=== PATIENT | female | born 1980 ===

== ENCOUNTER 2018-05-01 09:11 | Emergency (ER) | payer MEDICAID ==
[2018-05-01 09:17] VITALS: BMI 38.0
[2018-05-01] MEDS ORDERED: Sodium Chloride 0.9% 1,000 ML IV STA (09:55)
--- NOTE | 2018-05-01 10:00 | ED PDOC ---
HPI: Female Pain Time Seen by Provider: 05/01/18 09:43 Chief Complaint (Nursing): Female Genitourinary Chief Complaint (Provider): Flank pain History Per: Patient, Family History/Exam Limitations: no limitations Additional Complaint(s): Pt reports R flank pain X 2 months, was given ? antibiotic which resolved sxs but have returned. Also c/o dysuria, hesitancy and lower abdominal pain. Denies fever, nausea, vomiting, diarrhea. Menses started yesterday. Past Medical History Reviewed: Nursing Documentation, Vital Signs Vital Signs: Last Vital Signs Temp 96.8 F L 05/01/18 09:16 Pulse 59 L 05/01/18 09:16 Resp BP 122/82 05/01/18 09:16 Pulse Ox 99 05/01/18 09:16 - Medical History PMH: No Chronic Diseases, HTN, Chronic Kidney Disease - Surgical History Other surgeries: Gastric bypass - Family History Family History: States: Unknown Family Hx - Living Arrangements Living Arrangements: With Family - Social History Current smoker - smoking cessation education provided: No Alcohol: None - Home Medications Home Medications: Ambulatory Orders Medication Instructions Recorded Nitrofurantoin Macrocrystals 100 mg PO BID #14 cap 05/01/18 [Macrobid] Phenazopyridine [Pyridium] 200 mg PO BID PRN #6 tab 05/01/18 - Allergies Allergies/Adverse Reactions: Allergies Allergy/AdvReac Type Severity Reaction Status Date / Time No Known Allergies Allergy Verified 05/01/18 09:40 Review of Systems Constitutional: Negative for: Fever, Chills Cardiovascular: Negative for: Chest Pain, Palpitations Respiratory: Negative for: Cough, Shortness of Breath Gastrointestinal: Positive for: Abdominal Pain. Negative for: Nausea, Vomiting , Diarrhea Genitourinary Female: Positive for: Dysuria, Frequency, Vaginal Bleeding (Menses ), Pelvic Pain. Negative for: Incontinence, Hematuria, Vaginal Discharge Skin: Negative for: Rash, Lesions Neurological: Negative for: Headache, Dizziness Physical Exam - Reviewed Nursing Documentation Reviewed: Yes Vital Signs Reviewed: Yes - Physical Exam Appears: Positive for: Well, No Acute Distress Head Exam: Positive for: ATRAUMATIC, NORMAL INSPECTION Skin: Positive for: Normal Color, Warm, Dry Eye Exam: Positive for: Normal appearance, EOMI, PERRL Cardiovascular/Chest: Positive for: Regular Rate, Rhythm Respiratory: Positive for: Normal Breath Sounds. Negative for: Rales, Rhonchi, Wheezing Gastrointestinal/Abdominal: Positive for: Bowel Sounds, Soft, Tenderness ( Generalized). Negative for: Distended, Guarding, Rebound Back: Positive for: Normal Inspection, R CVA Tenderness. Negative for: L CVA Tenderness Extremity: Positive for: Normal ROM Neurologic/Psych: Positive for: Alert, Oriented - Laboratory Results Result Diagrams: 05/01/18 10:30 05/01/18 10:30 - ECG O2 Sat by Pulse Oximetry: 99 Medical Decision Making Medical Decision Makin yo female with R flank pain, dysuria and hesitancy. - labs - CT abd/pelvis - IVF - Morphine Accession No. : [id number] Patient Name / ID : TRACIE MOBLEY / [id number] Exam Date : 05/01/2018 10:24:30 ( Approved ) Study Comment : Sex / Age : F / 38Y Creator : Ernesto Carreno MD Dictator : Gas Technician : Eap Counselor : Ernesto Carreno MD Approver2 : Report Date : 05/01/2018 11:33:43 My Comment : Date of service: 05/01/2018 PROCEDURE: CT Abdomen and Pelvis. HISTORY: R flank pain, dysuria COMPARISON: Comparison made with CT scan of the abdomen pelvis dated 03/27/2010 the in TECHNIQUE: Contiguous axial images of the abdomen and pelvis. Total exam DLP = 1012.45 mGy- cm. This CT exam was performed using one or more of the following dose reduction techniques: Automated exposure control, adjustment of the mA and/or kV according to patient size, and/or use of iterative reconstruction technique. This CT exam was performed using one or more of the following dose reduction techniques: Automated exposure control, adjustment of the mA and/or kV according to patient size, and/or use of iterative reconstruction technique. . FINDINGS: LOWER THORAX: Unremarkable. LIVER: Liver is mildly enlarged measuring over 18 cm in CC dimension. No obvious hepatic mass or collection. . GALLBLADDER AND BILE DUCTS: Cholecystectomy. PANCREAS: Unremarkable. No mass. No ductal dilatation. SPLEEN: Unremarkable. No splenomegaly. ADRENALS: Unremarkable. KIDNEYS AND URETERS: Kidneys are symmetric in size. No evidence of nephrolithiasis or hydronephrosis. No obvious renal masses or collections. BLADDER: Urinary bladder exhibits mild thick-walled appearance which could be in part due to underdistention however correlation with urinalysis recommended to exclude cystitis. . REPRODUCTIVE: Unremarkable. APPENDIX: Unremarkable. BOWEL: Postoperative changes stomach apparent gastric sleeve surgery. Clinical correlation recommended. . PERITONEUM: Unremarkable. No fluid collection. No free air. Tiny fat containing umbilical hernia. LYMPH NODES: Unremarkable. No enlarged lymph nodes. VASCULATURE: Unremarkable. No aortic aneurysm. BONES: Minimal multilevel degenerative spondylosis of the lower thoracic and lumbar spine. OTHER FINDINGS: None. IMPRESSION: Mild wall thickening of the urinary bladder likely in part due to incomplete distention however correlation with urinalysis to exclude cystitis. No evidence of intraluminal urinary bladder calculi No evidence of nephrolithiasis. Cholecystectomy. Mild hepatomegaly. Postoperative gastric sleeve changes. Normal appendix. Disposition - Clinical Impression Clinical Impression: Urinary tract infection - Disposition Referrals: Radha Sanchez MD [Family Provider] - Disposition: Routine/Home Disposition Time: 13:09 Condition: IMPROVED Prescriptions: Nitrofurantoin Macrocrystals [Macrobid] 100 mg PO BID #14 cap Phenazopyridine [Pyridium] 200 mg PO BID PRN #6 tab PRN Reason: Bladder Spasm Instructions: Urinary Tract Infections in Adults Forms: [employer] (Filipino) Print Language: LAO
[2018-05-01 10:31] LABS: SQUAMOUS EPITHIAL 1 /hpf (0-5); URINE BILIRUBIN NEGATIVE (NEGATIVE); URINE BLOOD LARGE (NEGATIVE); URINE CLARITY CLOUDY (Clear); URINE COLOR YELLOW (YELLOW); URINE GLUCOSE (UA) NEG (Normal); URINE LEUKOCYTE ESTERASE MOD Leu/uL (Negative); URINE PROTEIN 100 mg/dL (NEGATIVE); URINE UROBILINOGEN 0.2-1.0 mg/dL (0.2-1.0)
[2018-05-01 10:55] LABS: BASO % 0.7 % (0.0-2.0); EOS % 1.1 % (0.0-4.0); HEMOGLOBIN 12.9 g/dL (12.0-16.0); LYMPH # 2.1 K/uL (1.0-4.3); LYMPH % 49.1 % (20.0-40.0); MEAN CELL VOLUME 92.2 fl (81.0-99.0); MEAN CORPUSCULAR HEMOGLOBIN 31.4 pg (27.0-31.0); MONO # 0.3 K/uL (0.0-0.8); MONO % 7.2 % (0.0-10.0); NEUT # 1.8 K/uL (1.8-7.0); NEUT % 41.9 % (50.0-75.0); RBC 4.11 Mil/uL (3.80-5.20); RED CELL DISTRIBUTION WIDTH 13.7 % (11.5-14.5); WHITE BLOOD COUNT 4.3 K/uL (4.8-10.8)
[2018-05-01 11:08] LABS: ALB/GLOB RATIO 1.3 (1.0-2.1); ALT/SGPT 29 U/L (9-52); AST/SGOT 40 U/L (14-36); BLOOD UREA NITROGEN 12 mg/dl (7-17); CALCIUM 9.2 mg/dL (8.4-10.2); GFR AFRICAN-AMERICAN > 60; GFR NON-AFRICAN AMERICAN > 60
--- NOTE | 2018-05-01 11:35 | CT ---
Date of service: 05/01/2018 PROCEDURE: CT Abdomen and Pelvis. HISTORY: R flank pain, dysuria COMPARISON: Comparison made with CT scan of the abdomen pelvis dated 03/27/2010 the in TECHNIQUE: Contiguous axial images of the abdomen and pelvis. Total exam DLP = 1012.45 mGy-cm. This CT exam was performed using one or more of the following dose reduction techniques: Automated exposure control, adjustment of the mA and/or kV according to patient size, and/or use of iterative reconstruction technique. This CT exam was performed using one or more of the following dose reduction techniques: Automated exposure control, adjustment of the mA and/or kV according to patient size, and/or use of iterative reconstruction technique. . FINDINGS: LOWER THORAX: Unremarkable. LIVER: Liver is mildly enlarged measuring over 18 cm in CC dimension. No obvious hepatic mass or collection. . GALLBLADDER AND BILE DUCTS: Cholecystectomy. PANCREAS: Unremarkable. No mass. No ductal dilatation. SPLEEN: Unremarkable. No splenomegaly. ADRENALS: Unremarkable. KIDNEYS AND URETERS: Kidneys are symmetric in size. No evidence of nephrolithiasis or hydronephrosis. No obvious renal masses or collections. BLADDER: Urinary bladder exhibits mild thick-walled appearance which could be in part due to underdistention however correlation with urinalysis recommended to exclude cystitis. . REPRODUCTIVE: Unremarkable. APPENDIX: Unremarkable. BOWEL: Postoperative changes stomach apparent gastric sleeve surgery. Clinical correlation recommended. . PERITONEUM: Unremarkable. No fluid collection. No free air. Tiny fat containing umbilical hernia. LYMPH NODES: Unremarkable. No enlarged lymph nodes. VASCULATURE: Unremarkable. No aortic aneurysm. BONES: Minimal multilevel degenerative spondylosis of the lower thoracic and lumbar spine. OTHER FINDINGS: None. IMPRESSION: Mild wall thickening of the urinary bladder likely in part due to incomplete distention however correlation with urinalysis to exclude cystitis. No evidence of intraluminal urinary bladder calculi No evidence of nephrolithiasis. Cholecystectomy. Mild hepatomegaly. Postoperative gastric sleeve changes. Normal appendix.
[2018-05-01] MEDS ORDERED: cefTRIAXone (Rocephin) 1 gm Inj ONE (13:16)
[2018-05-01 13:40] VITALS: BP 128/75; PULSE 64; RESP 15; TEMP 98.1
[2018-05-01 18:02] VITALS: O2SAT 99
== END 2018-05-01 13:39 | disposition home or self-care (01) ==
LOC: H.ER 09:11
DX: N39.0 Urinary tract infection, site not specified (principal); Z90.49 Acquired absence of other specified parts of digestive tract; Z98.84 Bariatric surgery status
CPT/HCPCS: 74176; 80053; 81003; 81025; 85025; 96360; 99284; J0696; J2270; J7030